=== PATIENT | male | born 1955 | race Two or more races ===

== ENCOUNTER 2021-06-03 15:43 | Emergency (ER) | payer OTHER ==
[~2021-06-03] VITALS: Ht 162.6 cm; Wt 107.0 kg
--- NOTE | 2021-06-05 19:35 | EKG ---
[facility] [address] [address] [place], [place] [address] Signed Sinus rhythm with premature atrial complexes Otherwise normal ECG No previous ECGs available Confirmed by LOLIS ARAGON DO ([id number]) on 06/05/2021 7:35:12 PM Electronically Signed By: LOLIS ARAGON DO 06/05/211934 PATIENT NAME: AUTUMN NAGEL Electrocardiogram DATE OF : 57 PHYSICIAN: LOLIS ARAGON DO REPORT #: [id number] REPORT IS CONFIDENTIAL AND NOT TO BE RELEASED WITHOUT AUTHORIZATION
== END 2021-06-03 20:25 | disposition home or self-care (01) ==
LOC: ED 15:43 → EDBD 15:45 → ED 15:45
DX: S22.31XA Fracture of one rib, right side, initial encounter for closed fracture (principal); V59.9XXA Occupant (driver) (passenger) of pick-up truck or van injured in unspecified traffic accident, initial encounter; E11.9 Type 2 diabetes mellitus without complications
CPT/HCPCS: 36415; 70450; 71045; 71260; 72125; 80053; 82150; 82553; 82803; 83605; 83690; 84484; 85025; 86850; 86900; 86901; 93005; 93010; 99285-25; A9270; G0480; J2270; J2405